=== PATIENT | female | born 1935 | race Asian ===

== ENCOUNTER 2023-11-13 17:58 | Inpatient (IN) | payer OTHER ==
[~2023-11-13] VITALS: Ht 147.3 cm; Wt 44.9 kg
[2023-11-13 18:02] VITALS: BP 184/118; PULSE 108; RESP 22; TEMP 98.3; O2SAT 95
[2023-11-13] MEDS ORDERED: cefTRIAXone 1,000 MG VIAL ONE (18:48)
[2023-11-13] MEDS: cefTRIAXone 1,000 MG in DEXT 5% MINI-BAG PLUS 50 ML IV ONE (18:51)
[2023-11-13 18:58] LABS: EOSINOPHILS % (AUTO) 0.1 % (0.0-4.0); HEMATOCRIT 26.7 % (36-48); HEMOGLOBIN 9.2 g/dL (12.0-16.0); LYMPHOCYTES # (AUTO) 0.6 K/uL (2.5-16.5); MEAN CORPUSCULAR HEMOGLOBIN 33 pg (27-31); MEAN CORPUSCULAR HGB CONC 34 g/dL (33-37); MEAN CORPUSCULAR VOLUME 96.8 fL (80-94); MONOCYTES # (AUTO) 1.3 K/uL (0.8-1.0); MONOCYTES % (AUTO) 12.5 % (1.7-9.3); NEUTROPHILS # (AUTO) 8.5 K/uL (1.8-7.7); NEUTROPHILS % (AUTO) 81.4 % (42.2-75.2); PLATELET COUNT (AUTO) 253 K/uL (140-450); RED BLOOD CELL COUNT(AUTO) 2.76 MIL/uL (4.20-5.40); RED CELL DISTRIBUTION WIDTH 13.9 % (11.6-13.7); WHITE BLOOD COUNT (AUTO) 10.4 K/uL (4.8-10.8)
[2023-11-13 19:11] LABS: ANION GAP 8.7 (8-16); CALCIUM 7.6 mg/dL (8.5-10.1); CARBON DIOXIDE 30.6 mmol/L (21-32); CHLORIDE 92 mmol/L (98-107); CREATININE 0.6 mg/dL (0.6-1.3); GLUCOSE 108 mg/dL (74-106); POTASSIUM 4.3 mmol/L (3.5-5.1); SODIUM SERUM 127 mmol/L (136-145); UREA NITROGEN, BLOOD 21 mg/dL (7-18)
[2023-11-13 19:19] LABS: LACTIC ACID 1.2 mmol/L (0.4-2.0)
[2023-11-13] MEDS ORDERED: NITROGLYCERIN 0.4 MG TAB SL PRN (22:20)
[2023-11-13] MEDS ORDERED: NACL 0.9% 1,000 ML IV SCH (22:20)
[2023-11-13] MEDS ORDERED: ACETAMINOPHEN 325 MG TAB PO PRN (22:20)
[2023-11-13] MEDS ORDERED: KETOROLAC 30 MG/ML VIAL IVP PRN (22:20)
[2023-11-13] MEDS ORDERED: hydrALAZINE 20 MG/ML VIAL IVP PRN (22:30)
[2023-11-13] MEDS ORDERED: hydrALAZINE 20 MG/ML VIAL ONE ×2 (23:20)
[2023-11-13] MEDS: FUROSEMIDE 40 MG/4 ML VIAL IVP SCH (23:39)
[2023-11-14 00:14] VITALS: PULSE 130; RESP 20; O2SAT 95; O2SAT 99
[2023-11-14] MEDS: ZOLPIDEM 5 MG TAB PO PRN (01:46)
[2023-11-14] MEDS: METOPROLOL 25 MG TAB PO ONE (01:47)
[2023-11-14] MEDS: METOPROLOL 25 MG TAB ONE (01:47)
[2023-11-14] MEDS: MORPHINE SULFATE 2 MG/ML SYR IVP PRN (03:53)
[2023-11-14] MEDS: ONDANSETRON 4 MG/2 ML VIAL IVP PRN (03:54)
[2023-11-14 04:00] VITALS: BP 136/93; PULSE 99; RESP 19; TEMP 97.5; O2SAT 99
[2023-11-14 06:11] LABS: BASOPHILS % (AUTO) 0.1 % (0.0-2.0); HEMATOCRIT 26.3 % (36-48); LYMPHOCYTES # (AUTO) 0.3 K/uL (2.5-16.5); LYMPHOCYTES % (AUTO) 3.2 % (20.5-51.1); MEAN CORPUSCULAR HEMOGLOBIN 34 pg (27-31); MEAN CORPUSCULAR HGB CONC 34 g/dL (33-37); MEAN CORPUSCULAR VOLUME 97.6 fL (80-94); MONOCYTES # (AUTO) 1.1 K/uL (0.8-1.0); MONOCYTES % (AUTO) 11.6 % (1.7-9.3); NEUTROPHILS # (AUTO) 8.4 K/uL (1.8-7.7); NEUTROPHILS % (AUTO) 85.1 % (42.2-75.2); PLATELET COUNT (AUTO) 249 K/uL (140-450); RED BLOOD CELL COUNT(AUTO) 2.69 MIL/uL (4.20-5.40); RED CELL DISTRIBUTION WIDTH 13.7 % (11.6-13.7); WHITE BLOOD COUNT (AUTO) 9.8 K/uL (4.8-10.8)
[2023-11-14 06:54] LABS: ALANINE AMINOTRANSFERASE 49 U/L (12-78); ALBUMIN 2.2 g/dL (3.4-5.0); ALKALINE PHOSPHATASE 84 U/L (50-136); ASPARTATE AMINOTRANSFERASE 54 U/L (15-37); CALCIUM 7.5 mg/dL (8.5-10.1); CARBON DIOXIDE 28.6 mmol/L (21-32); CHLORIDE 91 mmol/L (98-107); CREATININE 0.7 mg/dL (0.6-1.3); GLUCOSE 137 mg/dL (74-106); POTASSIUM 3.6 mmol/L (3.5-5.1); SODIUM SERUM 128 mmol/L (136-145); TOTAL BILIRUBIN 0.5 mg/dL (0.0-1.0); TOTAL PROTEIN, SERUM 6.4 g/dL (6.4-8.2); UREA NITROGEN, BLOOD 19 mg/dL (7-18)
[2023-11-14 06:58] LABS: CHOL/HDL RATIO 2.4 (1-4.5)
[2023-11-14] MEDS ORDERED: hydrALAZINE 20 MG/ML VIAL IVP PRN (07:14)
[2023-11-14 08:00] VITALS: BP 126/90; PULSE 96; PULSE 98; RESP 18; RESP 19; TEMP 97.6; O2SAT 96; O2SAT 99
[2023-11-14] MEDS: LOSARTAN 25 MG TAB PO SCH (09:07)
[2023-11-14] MEDS: DOCUSATE SODIUM 100 MG GELCAP PO SCH (09:07)
[2023-11-14] MEDS: FAMOTIDINE 20 MG TAB PO SCH (09:07)
[2023-11-14] MEDS: FUROSEMIDE 20 MG/2 ML VIAL IVP SCH (09:08)
[2023-11-14] MEDS: ASPIRIN 81 MG TAB.CHEW PO SCH (09:10)
[2023-11-14] MEDS: METOPROLOL 25 MG TAB PO SCH (09:10)
[2023-11-14 12:00] VITALS: BP 134/72; PULSE 74; PULSE 94; RESP 20; TEMP 98.2; O2SAT 98
[2023-11-14] MEDS: AZITHROMYCIN 500 MG in DEXTROSE 5% 250 ML IV SCH (14:39)
[2023-11-14 16:00] VITALS: BP 134/76; PULSE 74; PULSE 98; RESP 20; TEMP 98.2; O2SAT 98
[2023-11-14 20:00] VITALS: BP 123/75; PULSE 94; RESP 18; TEMP 97.5; O2SAT 100
[2023-11-14] MEDS: SIMVASTATIN 20 MG TAB PO SCH (20:30)
[2023-11-15] VITALS (10 sets, daily range): BP systolic 95–135; BP diastolic 59–86; PULSE 80–95; RESP 18–19; TEMP 96.6–98.6; O2SAT 97–100
[2023-11-15 05:58] LABS: BASOPHILS % (AUTO) 0.2 % (0.0-2.0); EOSINOPHILS % (AUTO) 0.3 % (0.0-4.0); HEMATOCRIT 24.7 % (36-48); HEMOGLOBIN 8.2 g/dL (12.0-16.0); LYMPHOCYTES # (AUTO) 0.5 K/uL (2.5-16.5); MEAN CORPUSCULAR HEMOGLOBIN 32 pg (27-31); MEAN CORPUSCULAR HGB CONC 33 g/dL (33-37); MEAN CORPUSCULAR VOLUME 97.2 fL (80-94); MONOCYTES # (AUTO) 1.2 K/uL (0.8-1.0); MONOCYTES % (AUTO) 11.2 % (1.7-9.3); NEUTROPHILS # (AUTO) 9.1 K/uL (1.8-7.7); NEUTROPHILS % (AUTO) 83.3 % (42.2-75.2); PLATELET COUNT (AUTO) 241 K/uL (140-450); RED BLOOD CELL COUNT(AUTO) 2.54 MIL/uL (4.20-5.40); RED CELL DISTRIBUTION WIDTH 13.9 % (11.6-13.7); WHITE BLOOD COUNT (AUTO) 10.9 K/uL (4.8-10.8)
[2023-11-15 06:27] LABS: ALANINE AMINOTRANSFERASE 43 U/L (12-78); ALKALINE PHOSPHATASE 73 U/L (50-136); ASPARTATE AMINOTRANSFERASE 39 U/L (15-37); CALCIUM 7.2 mg/dL (8.5-10.1); CARBON DIOXIDE 30.1 mmol/L (21-32); CHLORIDE 92 mmol/L (98-107); CREATININE 1.3 mg/dL (0.6-1.3); GLUCOSE 116 mg/dL (74-106); POTASSIUM 4.1 mmol/L (3.5-5.1); SODIUM SERUM 127 mmol/L (136-145); TOTAL BILIRUBIN 0.3 mg/dL (0.0-1.0); TOTAL PROTEIN, SERUM 5.9 g/dL (6.4-8.2); UREA NITROGEN, BLOOD 37 mg/dL (7-18)
[2023-11-16] VITALS (19 sets, daily range): BP systolic 104–163; BP diastolic 49–114; PULSE 68–94; RESP 13–18; TEMP 97.1–98.7; O2SAT 94–100
[2023-11-16 05:50] LABS: ALANINE AMINOTRANSFERASE 37 U/L (12-78); ALKALINE PHOSPHATASE 75 U/L (50-136); ANION GAP 11.6 (8-16); ASPARTATE AMINOTRANSFERASE 42 U/L (15-37); CALCIUM 7.2 mg/dL (8.5-10.1); CARBON DIOXIDE 27.9 mmol/L (21-32); CHLORIDE 89 mmol/L (98-107); CREATININE 1.6 mg/dL (0.6-1.3); GLUCOSE 98 mg/dL (74-106); POTASSIUM 4.5 mmol/L (3.5-5.1); SODIUM SERUM 124 mmol/L (136-145); TOTAL BILIRUBIN 0.3 mg/dL (0.0-1.0); TOTAL PROTEIN, SERUM 5.9 g/dL (6.4-8.2); UREA NITROGEN, BLOOD 45 mg/dL (7-18)
[2023-11-16 06:05] LABS: BASOPHILS % (AUTO) 0.1 % (0.0-2.0); EOSINOPHILS % (AUTO) 0.2 % (0.0-4.0); HEMATOCRIT 25.5 % (36-48); HEMOGLOBIN 8.5 g/dL (12.0-16.0); LYMPHOCYTES # (AUTO) 0.8 K/uL (2.5-16.5); LYMPHOCYTES % (AUTO) 7.5 % (20.5-51.1); MEAN CORPUSCULAR HEMOGLOBIN 33 pg (27-31); MEAN CORPUSCULAR HGB CONC 34 g/dL (33-37); MEAN CORPUSCULAR VOLUME 97.9 fL (80-94); MONOCYTES # (AUTO) 1.6 K/uL (0.8-1.0); MONOCYTES % (AUTO) 14.8 % (1.7-9.3); NEUTROPHILS # (AUTO) 8.6 K/uL (1.8-7.7); NEUTROPHILS % (AUTO) 77.4 % (42.2-75.2); PLATELET COUNT (AUTO) 260 K/uL (140-450); RED CELL DISTRIBUTION WIDTH 14.4 % (11.6-13.7); WHITE BLOOD COUNT (AUTO) 11.2 K/uL (4.8-10.8)
[2023-11-16] MEDS ORDERED: BENZONATATE 100 MG CAPLF PO PRN (09:05)
[2023-11-16 09:44] LABS: INR 0.98 (0.8-1.2); PARTIAL THROMBOPLASTIN TIME 30.1 secs (22-35.6); PROTHROMBIN TIME 10.3 secs (10.8-13.4)
[2023-11-16] MEDS: METOPROLOL 50 MG TAB PO SCH (20:30)
[2023-11-16] MEDS ORDERED: BRIMONIDINE TARTRATE 0.2% OP 5 ML BTL OP SCH (21:00)
[2023-11-16] MEDS: BRIMONIDINE TARTRATE 0.2% OP SCH (21:44)
[2023-11-16] MEDS: LUMIGAN 0.01% OP SCH (21:59)
[2023-11-16] MEDS: OPTHALMIC OP SCH (21:59)
[2023-11-17] VITALS: BP 124/53; PULSE 86; RESP 26; TEMP 97.5; O2SAT 100
[2023-11-17] MEDS: NACL 0.9% 500 ML IV ONE ×2 (00:20→00:24)
[2023-11-17 01:00] VITALS: BP 92/58; PULSE 83; RESP 14; O2SAT 100
[2023-11-17 01:01] LABS: HEMATOCRIT 21.1 % (36-48); HEMOGLOBIN 7.1 g/dL (12.0-16.0)
[2023-11-17 02:00] VITALS: BP 110/70; PULSE 88; RESP 16; O2SAT 100
[2023-11-17 02:26] VITALS: BP 113/58; PULSE 83; RESP 16; O2SAT 100
== END 2023-11-17 02:26 | disposition short-term general hospital (02) | DRG 871 ==
LOC: MED 17:58 → MTU 22:25 → MIC 11-16 16:45
PROVIDERS: ADMIT Student in an Organized Health Care Education/Training Program; ATTEND Student in an Organized Health Care Education/Training Program
DX: A41.9 Sepsis, unspecified organism (principal); E43 Unspecified severe protein-calorie malnutrition; I71.010 Dissection of ascending aorta; J15.69 Pneumonia due to other Gram-negative bacteria; J67.9 Hypersensitivity pneumonitis due to unspecified organic dust; E87.1 Hypo-osmolality and hyponatremia; J91.8 Pleural effusion in other conditions classified elsewhere; R06.03 Acute respiratory distress; I10 Essential (primary) hypertension; Z20.822 Contact with and (suspected) exposure to COVID-19; D50.9 Iron deficiency anemia, unspecified; Z79.899 Other long term (current) drug therapy; E78.5 Hyperlipidemia, unspecified; Z85.038 Personal history of other malignant neoplasm of large intestine; Z68.20 Body mass index [BMI] 20.0-20.9, adult
CPT/HCPCS: 36415; 71045; 71250; 71275; 76604; 80048; 80053; 83605; 83721; 83880; 83930; 84484; 85018; 85025; 85610; 85730; 87040; 87081; 93005; 96361; 96374; 97112; 97116; 97163-GP; 97530; 99285; J0360; J0456; J0696; J1644; J1940; J2270; J2405; J7060; Q0092; Q9967